=== PATIENT | female | born 1955 | race Caucasian/White ===

== ENCOUNTER → 2019-01-30 | Outpatient (CLI) | payer MEDICAID ==
[~2019-01-30] VITALS: Ht 165.1 cm; Wt 103.0 kg
[~2019-01-30] MED LIST: DITROPAN XL10 MG PO; LISINAPRIL; PRIMARIN; PROAIR HFA0.09 MG/AC IH
[2019-01-30 10:34] VITALS: BP 131/93; PULSE 79
[2019-01-30 11:54] VITALS: BP 127/38; PULSE 115
[2019-01-30 11:55] VITALS: BP 117/51; PULSE 85
== END ==
LOC: COL.CARD 01-26 10:45
DX: I20.8 Other forms of angina pectoris (principal)
CPT/HCPCS: A9500; J2785